=== PATIENT | male | born 1975 | race Caucasian/White ===

== ENCOUNTER 2018-11-11 12:00 | Outpatient (CLI) | payer BC | END 2018-11-11 12:01 | disposition home or self-care (01) | LOC: LAB.WCP 12:00 | PROVIDERS: ATTEND Physician Assistant | DX: J06.9 Acute upper respiratory infection, unspecified (principal) | CPT/HCPCS: 87275; 87276 ==

== ENCOUNTER 2019-05-31 08:10 | Outpatient (CLI) | payer BC ==
--- NOTE | 2019-05-31 11:16 | Ultrasound Report ---
Reason: ABDOMINAL PAIN RIGHT LOWER QUAD Procedure Date: 05/31/2019 Accession Number: [id number] / [id number] Procedure: US - Abdomen Limited CPT Code: FULL RESULT: EXAM: ABDOMEN ULTRASOUND LIMITED EXAM DATE: 05/31/2019 09:39 AM. CLINICAL HISTORY: Right lower quadrant abdominal pain. COMPARISON: 05/31/2019 9:40 AM. TECHNIQUE: Real-time scanning was performed with static images obtained. FINDINGS: A small likely direct reducible right fat-containing inguinal hernia is present with neck measuring 7 mm and hernia sac measuring 13 mm. No mass or adenopathy evident. IMPRESSION: Small fat-containing reducible right inguinal hernia. RADIA
== END 2019-05-31 08:11 | disposition home or self-care (01) ==
LOC: DI 08:10
PROVIDERS: ATTEND Family Medicine
DX: K40.90 Unilateral inguinal hernia, without obstruction or gangrene, not specified as recurrent (principal)
CPT/HCPCS: 76705

== ENCOUNTER 2019-07-07 05:56 | Outpatient (CLI) | payer BC ==
[2019-07-07] MEDS ORDERED: IOVERSOL 320 100 ML VIAL IVP ONE ×2 (06:15→06:35)
--- NOTE | 2019-07-08 05:00 | CT Report ---
Reason: PAIN AT R ABDOMEN Procedure Date: 07/07/2019 Accession Number: [id number] / [id number] Procedure: CT - Abdomen/Pelvis W CPT Code: FULL RESULT: EXAM: CT ABDOMEN AND PELVIS EXAM DATE: 07/07/2019 06:15 AM. CLINICAL HISTORY: PAIN AT R ABDOMEN. COMPARISONS: None. TECHNIQUE: Routine helical CT imaging was performed through the abdomen and pelvis. IV contrast: OPTI 320 100ML. Enteric contrast: No. Reconstructions: Coronal and sagittal. In accordance with CT protocol optimization, one or more of the following dose reduction techniques were utilized for this exam: automated exposure control, adjustment of mA and/or KV based on patient size, or use of iterative reconstructive technique. FINDINGS: Lung Bases: Unremarkable. Liver: Normal. No masses. Gallbladder/Bile Ducts: Unremarkable. Spleen: Normal. Pancreas: Normal. Adrenal Glands: The adrenal glands are normal in size. There is a small calcification along the medial limb of the right adrenal. Kidneys: Normal. No masses or hydronephrosis. Peritoneal Cavity/Bowel: Normal. No free fluid, free air or adenopathy. No masses or acute inflammatory process. The appendix is well visualized and normal. There are no inflammatory changes of the colon. Pelvic Organs: Normal. The bladder and visualized pelvic organs are within normal limits. Vasculature: No aneurysms or other significant abnormality. Bones: No significant abnormality. Other: There are bilateral inguinal hernias of adipose tissue. There are no inflammatory changes. IMPRESSION: 1. Normal-appearing appendix. 2. No bowel obstruction. No inflammation of the colon. 3. No renal calculi. 4. Bilateral inguinal hernias of adipose tissue. RADIA
== END 2019-07-07 05:57 | disposition home or self-care (01) ==
LOC: LAB 05:56
PROVIDERS: ATTEND Surgery
DX: K40.20 Bilateral inguinal hernia, without obstruction or gangrene, not specified as recurrent (principal); R10.31 Right lower quadrant pain
CPT/HCPCS: 74177; Q9967

== ENCOUNTER 2020-11-20 07:00 | Outpatient (CLI) | payer BC ==
--- NOTE | 2020-11-20 09:55 | XRAY Report ---
PROCEDURE: Toe(s) RT INDICATIONS: CONTUSION OF R GREAT TOE TECHNIQUE: 3 views of the right toe(s) acquired. COMPARISON: None. FINDINGS: No fracture. Moderate first MTP joint degeneration, with spurring and sclerosis. Soft tissues: No joy spicious soft tissue densities. Mild great toe soft tissue swelling. IMPRESSION: No definite fracture however follow-up radiographs in 10 days could be performed if the patient's sym ptoms do not improve to exclude occult fracture/assess for healing sclerosis. Reviewed by: Jeff Harry MD on 11/20/2020 9:54 AM PST Approved by: Jeff Harry MD on 11/20/2020 9:54 AM PST Station ID: [id number]
== END 2020-11-20 23:59 | disposition home or self-care (01) ==
LOC: DI.N 07:00
PROVIDERS: ATTEND Nurse Practitioner
DX: S90.111A Contusion of right great toe without damage to nail, initial encounter (principal)

== ENCOUNTER 2022-04-05 09:27 | Emergency (ER) | payer BC ==
--- NOTE | 2022-04-05 09:49 | ED Physician Documentation ---
PD HPI BACK PAIN - Stated complaint Stated Complaint: BACK PX - Chief complaint Chief Complaint: Back Pain - History obtained from History obtained from: Patient - History of Present Illness Timing - onset: Yesterday Timing - details: Abrupt onset, Still present, Waxing and waning (has had pain since onset, but is better rested and worse when moving, with muscle spasms in certain movements.) Location: Lower, Right (with radiation of pain down right thigh at times.), Left Quality: Pain, Spasm Associated symptoms: No: Fever, Weakness, Numbness, Incontinent of urine Improves with: Rest. 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 Onset of pain and spasm at the time. Has persisted into today despite massage, chiropractic, and OTC meds.) Similar symptoms before: Has not had sx before Recently seen: Not recently seen Review of Systems Constitutional: denies: Fever, Chills Nose: denies: Rhinorrhea / runny nose, Congestion Throat: denies: Sore throat Respiratory: denies: Cough GI: denies: Abdominal Pain, Nausea, Vomiting, Diarrhea : denies: Dysuria, Frequency, Incontinent, Hematuria Skin: denies: Rash, Lesions Neurologic: denies: Focal weakness, Numbness PD PAST MEDICAL HISTORY - Past Medical History Cardiovascular: None Respiratory: None Neuro: None Endocrine/Autoimmune: None Psych: ADD/ADHD - Past Surgical History Past Surgical History: No - Present Medications Home Medications: Ambulatory Orders Medication Instructions Recorded Confirmed Dextroamphetamine/Amphetamine 20 mg 07/23/16 [Adderall 20 mg Tablet] Sulfamethoxazole/Trimethoprim 1 each PO BID 7 Days #14 tablet 04/08/20 [Sulfamethoxazole-Tmp Ds Tablet] oxyCODONE [Roxicodone] 5 mg PO Q6H PRN #12 tablet 04/05/22 tiZANidine [Zanaflex] 4 mg PO Q8H PRN #25 tablet 04/05/22 - Allergies Allergies/Adverse Reactions: Allergies Allergy/AdvReac Type Severity Reaction Status Date / Time No Known Drug Allergies Allergy Verified 04/05/22 09:38 - Social History Does the pt smoke?: Yes Smoking Status: Current every day smoker Does the pt drink ETOH?: No Does the pt have substance abuse?: No - Immunizations Immunizations are current?: No PD ED PE NORMAL - Vitals Vital signs reviewed: Yes - General General: Alert and oriented X 3, Well developed/nourished, Other (appears guarded for ROM of the low back and moving stiffly. Pain at times with small movements. ) - Abdomen Abdomen: Soft, Non tender - Male Male : Deferred - Rectal Rectal: Deferred - Back Back: No CVA TTP, No spinal TTP, Other (tender in muscles just at iliac crest mainly right. ) - Derm Derm: Normal color, Warm and dry, No rash - Extremities Extremities: Normal ROM s pain, No edema, No calf tenderness / cord - Neuro Neuro: Alert and oriented X 3, No motor deficit, No sensory deficit, Normal speech, Other (normal patellar reflexes. ) Eye Opening: Spontaneous Motor: Obeys Commands Verbal: Oriented GCS Score: 15 Results - Vitals Vitals: Vital Signs - 24 hr 04/05/22 04/05/22 09:35 11:52 Temperature 36.4 C L 36.6 C Heart Rate 78 66 Respiratory 20 Rate Blood Pressure 113/71 138/79 H O2 Saturation 99 100 Oxygen O2 Source Room air PD MEDICAL DECISION MAKING - ED course Complexity details: considered differential (low back pain and spasms with low force mechanism and no red flags. Discussed with patient back pain guidelines of typically no imaging/labs in this context. ), d/w patient Departure - Departure Disposition: 01 Home, Self Care Clinical Impression: Lumbar paraspinal muscle spasm Condition: Stable Record reviewed to determine appropriate education?: Yes Instructions: ED Spasm Back No Trauma Follow-Up: Ramila Camp MD [Primary Care Provider] - Prescriptions: oxyCODONE [Roxicodone] 5 mg PO Q6H PRN #12 tablet PRN Reason: Pain tiZANidine [Zanaflex] 4 mg PO Q8H PRN #25 tablet PRN Reason: Spasms Comments: Heat and gentle stretching for the back to reduce spasming. Physical treatments such as massage and chiropractic are good. I would have you continue the anti-inflammatory of ibuprofen 800 mg 3 times da essie with food for the next 4 to 5 days. Add tizanidine muscle relaxant every 4- 6 hours if needed for spasms. To that add Tylenol 500 mg 4 times daily. Add oxycodone every 6 hours if needed for worse pain. Back spasms and pain are relatively common in typically will clear in several days to even 2 to 3 weeks sometimes. Recheck if not improving in that timeframe or if you develop worse symptoms. Refer to the instructions. I transmitted your prescriptions to [facility] pharmacy. I am prescribing a short course of narcotic pain medication for you. These are potentially dangerous and addictive medications that should be used carefully. These medications may constipate you. Take an mupx-ovx-myestst stool softener such as docusate twice daily with plenty of water while taking these medic ations. If you go 24 hours without a bowel movement, take [id number] MiraLAX, per package instructions. Do not drink or drive while taking these medications. If you received narcotic or sedating medications while in the emergency department do not drive for 24 hours. Store this medication in a safe, secure place and out of reach of children. It is a violation of federal law to give or sell this medication to another person or to use in a manner other than prescribed. The ED will not refill narcotic prescriptions, including prescriptions lost or stolen. You can dispose of unwanted medications at the [facility]'s office or at several pharmacies such as [facility]. Discharge Date/Time: 04/05/22 11:51
[2022-04-05] MEDS ORDERED: methocarbamoL 500 MG TABLET PO STA (10:33)
[2022-04-05] MEDS ORDERED: ACETAMINOPHEN 325 MG TABLET PO STA (10:33)
[2022-04-05] MEDS ORDERED: HYDROmorphone 1 MG/ML CARPUJECT IM STA (10:33)
[2022-04-05] MEDS ORDERED: KETOROLAC 30 MG/ML VIAL IM STA (10:33)
[2022-04-05 11:52] VITALS: BP 138/79
== END 2022-04-05 11:51 | disposition home or self-care (01) ==
LOC: ED 09:27
DX: M62.830 Muscle spasm of back (principal); F17.200 Nicotine dependence, unspecified, uncomplicated
CPT/HCPCS: 96372; 96374; 99283; 99284; A9270; J1170

== ENCOUNTER 2023-05-20 12:52 | Outpatient (CLI) | payer BC ==
--- NOTE | 2023-05-21 08:39 | XRAY Report ---
PROCEDURE: Wrist 3 View RT INDICATIONS: TENOSYNOVITIS TECHNIQUE: 3 views of the wrist were acquired. COMPARISON: X-ray right hand, 05/20/2023. FINDINGS: Bones: No fractures or dislocations. No suspicious bony lesions. Soft tissues: No suspicious soft tissue calcifications or masses. Soft tissue swelling around wris t. IMPRESSION: No acute bony abnormality. If ankle symptoms persist and there is clinical suspicion for internal adam angement, consider MRI for further evaluation. Reviewed by: Janell Chowdhury MD on 05/21/2023 8:38 AM PDT Approved by: Janell Chowdhury MD on 05/21/2023 8:38 AM PDT Station ID: [id number]
--- NOTE | 2023-05-21 08:40 | XRAY Report ---
PROCEDURE: Hand 3 View RT INDICATIONS: TENOSYNOVITIS TECHNIQUE: 3 views of the hand(s) acquired. COMPARISON: X-ray right wrist, 05/20/2023. FINDINGS: Bones: No fractures or dislocations. No suspicious bony lesions. Soft tissues: No suspicious soft tissue calcifications or masses. IMPRESSION: No acute bony abnormality. Reviewed by: Janell Chowdhury MD on 05/21/2023 8:39 AM PDT Approved by: Janell Chowdhury MD on 05/21/2023 8:39 AM PDT Station ID: [id number]
== END 2023-05-20 12:53 | disposition home or self-care (01) ==
LOC: DI 12:52
PROVIDERS: ATTEND Family Medicine
DX: M65.4 Radial styloid tenosynovitis [de Quervain] (principal)